=== PATIENT | female | born 1935 | race Caucasian/White ===

== ENCOUNTER 2022-08-16 10:47 | Emergency (ER) | payer MEDICARE, SELFPAY ==
[2022-08-16 11:23] VITALS: BP 133/57; PULSE 70; RESP 12; TEMP 36.4; O2SAT 100
--- NOTE | 2022-08-16 11:34 | ED.GENADULT ---
HPI - General Adult General Chief complaint: Unspecified Stated complaint: medication req Time Seen by Provider: 08/16/22 11:34 Source: patient Mode of arrival: ambulatory Limitations: altered mental status and physical limitation History of Present Illness HPI narrative: a 6-year-old female patient presents to the [facility] accompanied by her children with request for medication refill. Daughter states that patient was in a rehabilitation facility in for an day went and got brought her to [facility] last night. Daughter states that they did not give them another medication and that she is currently out of her glipizide and a tendon all. The daughter states that they do have to call to make an appointment with a new primary Doctor in [place]. Related Data Home Medications Medication Instructions Recorded Confirmed amlodipine 5 mg tablet 5 mg PO BID 08/16/22 08/16/22 atenolol 25 mg tablet 25 mg PO DAILY 08/16/22 08/16/22 atorvastatin 20 mg tablet 20 mg PO DAILY 08/16/22 08/16/22 divalproex 125 mg capsule,delayed 125 mg PO BID 08/16/22 08/16/22 release sprinkle dulaglutide 3 mg/0.5 mL 3 mg subcut WEEKLY 08/16/22 08/16/22 subcutaneous pen [facility]or ([facility]) gabapentin 100 mg capsule 100 mg PO DAILY 08/16/22 08/16/22 glipizide 5 mg tablet 5 mg PO DAILY 08/16/22 08/16/22 hydroxyzine pamoate 25 mg capsule 25 mg PO BID 08/16/22 08/16/22 insulin lispro 100 unit/mL 1 sliding scale dose subcut 08/16/22 08/16/22 subcutaneous pen (Admelog SoloStar USEASDIRECTD U-100 Insulin lispro) levothyroxine 75 mcg tablet 75 mcg PO DAILY 08/16/22 08/16/22 ondansetron 4 mg disintegrating 4 mg PO Q6H PRN Nausea 08/16/22 08/16/22 tablet potassium chloride 20 mEq oral 20 meq PO BID 08/16/22 08/16/22 packet sertraline 25 mg tablet 25 mg PO DAILY 08/16/22 08/16/22 Allergies Allergy/AdvReac Type Severity Reaction Status Date / Time egg AdvReac Gastrointestinal Verified 08/16/22 11:26 Upset Review of Systems Review of Systems: CONSTITUTIONAL: Denies fever, chills, or sweats. EYES: Denies visual changes, redness, or discharge. ENT: Denies rhinorrhea, congestion, sore throat, or otalgia. CARDIOVASCULAR: Denies chest pain, palpitations, or edema. RESPIRATORY: positive cough x3 weeks post COVID , denies dyspnea. GASTROINTESTINAL: Denies abdominal pain, nausea, vomiting, or diarrhea. GENITOURINARY: Denies dysuria or hematuria. SKIN: Denies rash or itching. MUSCULOSKELETAL: Denies back pain, joint pain, or myalgia. NEUROLOGIC: Denies headache, numbness, or weakness. PSYCHIATRIC: Denies anxiety or depression. [facility] Past Medical History Medical History (Updated 08/16/22 @ 11:52 by DARRYL Gallardo) Hypertension Type 2 diabetes mellitus Exam Narrative: GENERAL: Well-appearing, well-nourished, and in no acute distress. HEAD: Normocephalic, atraumatic. EYES: PERRLA and EOMI. ENT: Nares clear, no rhinorrhea or epistaxis. Mucous membranes moist. NECK: Supple. No lymphadenopathy CHEST: Clear to auscultation. No respiratory distress. HEART: Regular rate and rhythm. No murmur heard. Normal peripheral pulses. ABDOMEN: Soft, nontender, nondistended, normal active bowel sounds. EXTREMITIES: Normal range of motion. No edema. SKIN: Warm, dry, no rash. NEURO: No focal deficits. Alert and oriented x3. Course Course Level of Care: Express Care Visit Vital Signs Vital signs: Vital Signs Temperature 36.4 C 08/16/22 11:23 Pulse Rate 70 08/16/22 11:23 Respiratory Rate 12 08/16/22 11:23 Blood Pressure 133/57 L 08/16/22 11:23 Pulse Oximetry 100 08/16/22 11:23 Oxygen Delivery Room Air 08/16/22 11:23 Temperature 36.4 C 08/16/22 11:23 Pulse Rate 70 08/16/22 11:23 Respiratory Rate 12 08/16/22 11:23 Blood Pressure 133/57 L 08/16/22 11:23 Pulse Oximetry 100 08/16/22 11:23 Oxygen Delivery Room Air 08/16/22 11:23 vital signs reviewed. Medical Decision Making MDM Narrative
[2022-08-16 11:49] LABS: Glucose Point of Care 119 mg/dl (65-105)
== END 2022-08-16 12:00 | disposition home or self-care (01) ==
PROVIDERS: Emergency Provider Nurse Practitioner Family
DX: Z76.0 Encounter for issue of repeat prescription (principal); E11.9 Type 2 diabetes mellitus without complications; I10 Essential (primary) hypertension; Z79.84 Long term (current) use of oral hypoglycemic drugs; Z79.4 Long term (current) use of insulin
CPT/HCPCS: 82948; 99202; G0463

== ENCOUNTER 2022-10-26 10:57 | Outpatient (CLI) | payer MEDICARE, SELFPAY ==
--- NOTE | ~2022-10-26 | CT_ITS ---
CT scan of the Neck Technique: 2.5 mm axial scans were obtained through the neck without IV contrast administration. Ajay nal and sagittal reconstructions of the neck were obtained. Dose reduction technique was used on this scan by utilizing automated exposure control and iterative reconstruction technique. The dose-length product (DLP) was 513.06 mGy-cm. Clinical History: Localized swelling or mass Findings: There is no evidence of any significant cervical lymphadenopathy. Several small, nonenlarged jugulo- digastric and posterior cervical lymph nodes are noted bilaterally. Parapharyngeal spaces appear norm al bilaterally. The parotid and submandibular glands appear normal. The pharyngeal mucosal spaces appear normal. No soft tissue masses are seen in the neck. The thyroid gland appears normal. There is scarring at the left lung apex. Impression: No significant abnormalities noted. Reviewed, dictated and finalized at [facility]. Impression: No significant abnormalities noted.
== END 2022-10-26 10:58 | disposition home or self-care (01) ==
PROVIDERS: PCP Family Medicine; Visit Provider Family Medicine
DX: R22.1 Localized swelling, mass and lump, neck (principal)
CPT/HCPCS: 70490

== ENCOUNTER 2022-11-02 01:33 | Day surgery (SDC) | payer MEDICARE, SELFPAY ==
[2022-10-30 16:39] VITALS: BMI 23.8
[2022-11-02 10:37] VITALS: BP 183/57; PULSE 59; RESP 16; TEMP 36.6; O2SAT 100; BMI 24.2
[2022-11-02 10:38] LABS: Basophils Absolute Auto 0.1 K/mm3 (0.0-0.1); Basophils Percent Auto 0.6 % (0.2-1.2); Eosinophils Absolute Auto 0.2 K/mm3 (0-0.3); Eosinophils Percent Auto 3.1 % (0-4.4); Hematocrit 43.5 % (37.0-47.0); Hemoglobin 14.1 g/dL (12.0-15.0); Immature Granulocyte Absolute 0.01 K/mm3 (0.00-0.031); Immature Granulocyte Percent A 0.1 % (0-0.5); Lymphocytes Absolute Auto 2.59 K/mm3 (0.9-3.2); Lymphocytes Percent Auto 33.1 % (18.3-44.2); Mean Corpuscular HGB Conc 32.4 g/dl (32-36); Mean Corpuscular Hemoglobin 29.3 pg (26-34); Mean Corpuscular Volume 90.4 fl (80-100); Mean Platelet Volume 9.8 fl (7.4-10.4); Monocytes Absolute Auto 0.5 K/mm3 (0.1-0.6); Monocytes Percent Auto 6.8 % (2.6-8.5); Neutrophils Absolute Auto 4.4 K/mm3 (1.3-6.7); Neutrophils Percent Auto 56.3 % (45.5-73.1); Platelet Count Result 282 k/mm3 (150-375); Red Blood Count 4.81 M/mm3 (4.2-5.4); Red Cell Distribution Width 13.4 % (11.5-14.5); White Blood Count 7.8 K/mm3 (4.5-10.0)
[2022-11-02 10:49] LABS: Prothrombin Time 13.6 Seconds (11.1-14.7)
[2022-11-02 10:50] LABS: Anion Gap 6 mmol/L (8-16); Blood Urea Nitrogen 20 mg/dL (7-17); Calcium 9.4 mg/dL (8.4-10.2); Carbon Dioxide 30 mmol/L (22-30); Chloride 102 mmol/L (98-107); Estimated CRCL calculation 34 ml/min; Estimated Glomerular Filt Rate > 60; Glucose 131 mg/dL (65-110); Potassium 4.1 mmol/L (3.4-5.0); Sodium 138 mmol/L (137-145)
--- NOTE | 2022-11-02 13:05 | WPDMODSED ---
Moderate Sedation Note-Pt Data Patient Data Diagnosis: chronically implanted pacemaker at eol L Present Complaint: no complaints today Procedure to be performed/Plan: permanent pacemaker generator change Allergies Allergy/AdvReac Type Severity Reaction Status Date / Time egg AdvReac Gastrointestinal Verified 10/30/22 16:25 Upset Home Medications Medication Instructions Recorded Confirmed Type amlodipine 5 mg tablet 5 mg PO DAILY #100 tabs 09/15/22 10/30/22 Rx atenolol 25 mg tablet 25 mg PO DAILY #100 tabs 09/15/22 10/30/22 Rx atorvastatin 20 mg tablet 20 mg PO DAILY #100 tabs 09/15/22 10/30/22 Rx glipizide 5 mg tablet 5 mg PO DAILY #100 tabs 09/15/22 10/30/22 Rx levothyroxine 75 mcg tablet 75 mcg PO DAILY #100 tabs 09/15/22 10/30/22 Rx gabapentin 300 mg capsule 300 mg PO QHS #90 caps 09/22/22 10/30/22 Rx tramadol 50 mg tablet 50 mg PO Q6H PRN pain #60 tabs 10/08/22 10/30/22 Rx dulaglutide 3 mg/0.5 mL See Rx Instructions .Route 10/19/22 10/30/22 Rx subcutaneous pen injector .COMPLEX #2 mL (Trulicity) aspirin 81 mg tablet 81 mg PO DAILY 10/30/22 10/30/22 History Sedation/Anesthesia: No previous sedation/anesthesia problems (including family history). [facility] Past Medical History Medical History Alzheimer's dementia CAD (coronary artery disease) Epidermal cyst of neck Hyperlipidemia Hypertension Hypothyroidism (acquired) Type 2 diabetes mellitus Surgical History Surgical History Hx of CABG Social History Social History Social History: Single Smoking status: Never smoker Second hand tobacco smoke exposure: No Alcohol intake: never Substance use: never Substance use type: does not use Lack of Transportation: No Lack of Food: Never True Current Housing: I Have Housing Concerned About Future Housing: No Difficulty Paying Gas/Electric Bills: No Difficulty Paying for Meds: No Currently Unemployed: YES Education: Decline to Answer Difficulty w/ Childcare or Family Care: No Living arrangements: with family Occupation/Education: retired Gender identity (if verbalized by the patient): Female Sexual Orientation (if Verbalized by the Patient): Straight or Heterosexual Spiritual care concerns: No Mod Sed Physical Exam Physical Exam Pre Procedural Exam: Normal: Appearance ( elderly white female appearing her stated age), Neck, Throat, Airway, Lungs, Heart Size, Heart Rate, Heart Rhythm and Extremities Hours since solid foods: 12 Hours since liquid intake: 12 Mallampati Classification: class II Internal Medicine - PN: Obj Da Vital Signs Vital Signs: Vital Signs - 24 hr 11/02/22 10:37 Temperature 36.6 C Pulse Rate 59 L Respiratory Rate 16 Blood Pressure 183/57 H Pulse Oximetry 100 Oxygen Delivery Room Air Labs 11/02/22 10:33 11/02/22 10:33 Labs: Laboratory Results - last 24 hr 11/02/22 10:33 WBC 7.8 RBC 4.81 Hgb 14.1 Hct 43.5 MCV 90.4 MCH 29.3 MCHC 32.4 RDW 13.4 Plt Count 282 MPV 9.8 Immature Gran % (Auto) 0.1 Neut % (Auto) 56.3 Lymph % (Auto) 33.1 [place] % (Auto) 6.8 Eos % (Auto) 3.1 Baso % (Auto) 0.6 Lymph # (Auto) 2.59 [place] # (Auto) 0.5 Eos # (Auto) 0.2 Baso # (Auto) 0.1 Abs Immat Gran (auto) 0.01 Absolute Neuts (auto) 4.4 Absolute Nucleated RBC 0.0 Nucleated RBC % 0.0 PT 13.6 INR 1.0 Sodium 138 Potassium 4.1 Chloride 102 Carbon Dioxide 30 Anion Gap 6 L BUN 20 H Creatinine 0.80 Estim Creat Clear Calc 34 Estimated GFR > 60 Glucose 131 H Calcium 9.4 ASA Classification/Sedation ASA Classification/Sedation ASA Class: II Emergent: No Risks: Risks, benefits and alternatives explained and patient/family accepted plan for sedation. Patient re-evaluated immediately prior to sedation.
--- NOTE | 2022-11-02 14:05 | P.PCNCC_ITS ---
Cardiac Cath Procedure Note Date of procedure:: 11/02/22 Performing physician:: Elkin Tran MD Indication:: permanent pacemaker at eol Brief clinical history:: this is an 86-year-old woman who received a pacemaker implant in 2007 in [place] for indications that I have we do not have available to us. She has moved to this area her pacemaker has been at eol since 2017. The patient wishes to have a generator change and is admitted electively for that purpose Procedure Procedure performed:: explantation of depleted pacemaker pulse generator implantation of new dual-chamber [employer] pacemaker generator using existing leads Sedation/Medication given:: fentanyl 25 mg Versed 2 mg case start time 1:24 p.m. case end time 2:00 p.m. sedation provided by Kayley Rosas RN, trained observer Access site:: chronically implanted device pocket in left subclavian fossa Estimated blood loss:: 20 cc Procedure note:: patient was brought to the cardiac catheterization lab in the postabsorptive state where the left anterior chest wall above the chronically implanted pacemaker pocket was prepped draped in sterile fashion. She received 20 cc of 1% lidocaine infiltrated above the pocket. Following this the PlasmaBlade was used to make an incision in the skin above the pocket and was used to provide electrocautery as well. The pocket was dissected down to the fibrous capsule this was then opened using the plasma blade and the Metzenbaum scissors. Following this the device was removed from the pocket along with the attached leads and was visually unremarkable in appearance. The leads were disconnected from the depleted generator using the torque wrench and the leads were then connected to the new generator. The pocket was irrigated with antibiotic infused saline. The fibrous capsule around the chronically implanted generator was heavily calcified and some of this was dissected away and removed. Following this the new generator and the leads were implanted back into the pocket which was then closed in layers using 3-0 Vicryl in interrupted fashion for the subcutaneous tissue and 4-0 Vicryl in a running subcuticular fashion for the skin. The wound was then dressed with an Aquacel dressing. She was taken back to the holding area in stable condition. Postop antibiotics were ordered. Findings:: The depleted removed pulse generator was a Guidant [id number] serial 3. 73712 dual-chamber generator originally implanted October 24 2007. the new pacemaker pulse generator is a [employer] dual-chamber pacemaker model L111:ESSENTIO MRI DR IS-1. serial number [id number]. device is programmed in the DDD mode lower rate limit 60 upper rate limit 130 av delay 220 6-300 millisecond. The chronically implanted atrial lead is a Guidant model 4086 : FLEXTEND IS-1 Bi Positive Fix RA/RV 45cm . P waves are sensed at 2.2 mV threshold 0.8 volt At 0.4 millisecond impedance 456 Ohms. The chronically implanted ventricular lead is a Guidant model 4087 FLEXTEND IS-1 Bi Positive Fix RA/RV 52 cm. R-waves are sensed at 16.0 mV threshold 0.8 volt at 0.4 millisecond impedance 577 Ohms. both leads were chronically implanted October 24, 2007 Conclusion:: 1. successful uncomplicated explantation of depleted dual-chamber pulse generator at [facility] since 2016 2. successful implantation of new dual-chamber pulse generator as detailed above using chronic existing atrial and ventricular leads which are functioning well. Elkin Tran MD FACC
[2022-11-02 14:15] VITALS: BP 161/58; PULSE 60; RESP 16; O2SAT 99
[2022-11-02 14:30] VITALS: BP 154/61; PULSE 60; RESP 13; O2SAT 99
[2022-11-02 14:45] VITALS: BP 160/63; PULSE 60; RESP 16; O2SAT 98
[2022-11-02 15:00] VITALS: BP 157/69; PULSE 60; RESP 15; O2SAT 99
[2022-11-02 15:15] VITALS: BP 168/55; PULSE 64; RESP 16; O2SAT 100
== END 2022-11-02 15:35 | disposition home or self-care (01) ==
PROVIDERS: PCP Family Medicine; Visit Provider Specialist
PROC: 0JPT0PZ Removal of Cardiac Rhythm Related Device from Trunk Subcutaneous Tissue and Fascia, Open Approach (ICD-10-PCS; CPT 33228; principal; 2022-11-02 11:30)
DX: Z45.010 Encounter for checking and testing of cardiac pacemaker pulse generator [battery] (principal); G30.9 Alzheimer's disease, unspecified; F02.80 Dementia in other diseases classified elsewhere, unspecified severity, without behavioral disturbance, psychotic disturbance, mood disturbance, and anxiety; I10 Essential (primary) hypertension; E78.5 Hyperlipidemia, unspecified; E03.9 Hypothyroidism, unspecified; I25.10 Atherosclerotic heart disease of native coronary artery without angina pectoris; Z95.1 Presence of aortocoronary bypass graft; Z79.84 Long term (current) use of oral hypoglycemic drugs; Z79.899 Other long term (current) drug therapy
CPT/HCPCS: 33228; 36415; 80048; 85025; 85610; C1785; J0690; J2250; J3010; J7030; J7040

== ENCOUNTER 2022-11-12 08:20 | Outpatient (CLI) | payer MEDICARE, SELFPAY ==
--- NOTE | 2022-11-12 08:50 | ECHO_ITS ---
Patient Info Name: Roxanna Cuellar Age: 86 years : 1935 Gender: Female Ht: 62 in Wt: 130 lbs BSA: 1.62 m2 HR: 60 bpm BP: 149 / 71 mmHg Heart Rhythm: Sinus Rhythm Technical Quality: Fair Exam Date: 11/12/2022 9:01 AM Exam Location: [facility] Patient Status: Outpatient Admit Date: 11/12/2022 Staff Ordering Physician: Farhad Glover DO Fire Sprinkler Inspector: Gonzalo Silverio RDCS Attending Provider: Farhad Glover DO Referring Physician: Adalberto GIBSON; Exam Type: CA echo dop color flow w con Study Info Indications - CAD Complete two-dimensional, color flow and Doppler transthoracic echocardiogram is performed with contrast to opacify the left ventricle and to improve the deliniation of the left ventricle endocardial borders. Summary 1. Definity contrast administered improved wall motion interpretation. 2. Left ventricular chamber dimension is normal. 3. Left ventricular systolic function is normal, estimated at 65-70%. 4. There is mild concentric increased left ventricular wall thickness. 5. The left ventricular diastolic function is abnormal. 6. E/e' 21 is elevated. 7. Linear artifact in right ventricle suggestive of catheter(s), pacemaker lead(s), or ICD lead(s). 8. Left atrial chamber dimension is mildly enlarged. 9. Linear artifact in the right atrium suggestive of catheter(s), pacemaker lead(s), or ICD lead(s). 10. There is moderate aortic valve sclerosis. 11. There is mild aortic valve stenosis with a peak velocity of 245.88 cm/s, mean gradient of 11 mmHg, and aortic valve area of 1.05 cm2. 12. There is trace aortic valve regurgitation. 13. The mitral valve has severely calcified leaflets and severely calcified annulus. 14. There is mild to moderate tricuspid valve regurgitation. 15. No pulmonary hypertension, estimated pulmonary arterial systolic pressure is 33 mmHg. 16. There is trace pulmonic regurgitation. Left Ventricle E/e' 21 is elevated. Definity contrast administered improved wall motion interpretation. Left ventricular chamber dimension is normal. Left ventricular systolic function is normal, estimated at 65-70%. There is mild concentric increased left ventricular wall thickness. The left ventricular diastolic function is abnormal. Right Ventricle Linear artifact in right ventricle suggestive of catheter(s), pacemaker lead(s), or ICD lead(s). Right ventricular chamber dimension is normal. Right ventricular systolic function is normal. Left Atria Left atrial chamber dimension is mildly enlarged. Right Atria Linear artifact in the right atrium suggestive of catheter(s), pacemaker lead(s), or ICD lead(s). Right atrial chamber dimension is normal. Aortic Valve The aortic valve is trileaflet. There is moderate aortic valve sclerosis. There is mild aortic valve stenosis with a peak velocity of 245.88 cm/s, mean gradient of 11 mmHg, and aortic valve area of 1.05 cm2. There is trace aortic valve regurgitation. Pulmonic Valve There is trace pulmonic regurgitation. Mitral Valve The mitral valve has severely calcified leaflets and severely calcified annulus. There is no mitral valve stenosis. There is no mitral valve regurgitation. Tricuspid Valve There is mild to moderate tricuspid valve regurgitation. No pulmonary hypertension, estimated pulmonary arterial systolic pressure is 33 mmHg. Pericardium/Pleural There is no pericardial effusion. Inferior Vena Cava Normal inferior vena cava with >50% collapse upon inspiration consistent with normal right atrial pressure, 5 mmHg. Aorta The aortic root size at the sinus of Valsalva
[2022-11-12] MEDS: PERFLUTREN LIPID MICROSPHERES 1.5 ML VIAL DILUTED TO 10 ML TOTAL VOLUME (10:10)
== END 2022-11-12 08:21 | disposition home or self-care (01) ==
PROVIDERS: PCP Family Medicine; Visit Provider Internal Medicine Cardiovascular Disease
DX: I25.810 Atherosclerosis of coronary artery bypass graft(s) without angina pectoris (principal)
CPT/HCPCS: C8929; Q9957

== ENCOUNTER 2022-12-16 00:43 | Day surgery (SDC) | payer MEDICARE, SELFPAY ==
--- NOTE | 2022-12-09 13:51 | PC.NURSE ---
Report to the Outpatient Waiting Room, entrance under the green pavilion located off [facility], at time _0600 on date __12/16/22 . Planned Procedure Time: __729 . Time changes happen often and if your time is changed the preop area will call you the afternoon before. - You and your visitor will be asked to self-screen and do not enter if you have any COVID symptoms. - A mask is optional within the hospital at this time. Patients may have clear liquids (water, carbonated beverages, clear teas, apple juice) until 3 hours prior to surgery with a maximum of 20 ounces. - No food from midnight until time of surgery - Infants may have breast milk until 4 hours before surgery, infant formula 6 hours prior to surgery. - Children will be allowed to drink immediately following surgery. If applicable, please bring a bottle or sippy cup to assist with drinking. Juice, water, soda, and popsicles are readily available. For infants on formula, please bring formula the day of surgery. Pacifiers are allowed. Take the following medications with a SIP of water the morning of surgery: ___AMLODIPINE,ATENOLOL,LEVOTHYROXINE DO NOT STOP ANY OF YOUR OTHER PRESCRIPTION MEDICATIONS PRIOR TO SURGERY ?EXCEPT THE FOLLOWING Medications to discontinue per physician ____NONE Please no make-up, nail sinhala, hairspray, perfume, deodorant, or body powder the day of surgery. No jewelry (including any body piercings) or valuables the day of surgery, leave them at home. Please take a shower or bath the night before, or the morning of, surgery with an antibacterial soap. Wear comfortable, loose fitting clothing. Children are encouraged to wear pajamas. - Jewelry must be removed prior to entering the operating room. Rings and piercings that are not removed may be cut off. - The hospital will not accept responsibility for valuables. - Please leave all valuables, including medications, at home the day of surgery. If you are going home after surgery, a licensed drivers' cash clerk must drive you home. - NO public transportation without another adult if you receive anesthesia. - We recommend that an adult stay with you for 24 hours following discharge. - We also recommend that you do not drive, make important decision, drink alcoholic beverages, or take any drugs that were not prescribed by your health care provider for at least 24 hours after your discharge time. Follow any additional instructions given to you from your surgeon. If you or anyone in your household have experienced Covid symptoms in the past week, please notify your surgeon or the nurse liaison at the phone number below for possible testing. Telephone instructions given to _PT'S DAUGHTER IN LAW CHER DOLAN and asked if any additional questions and then verbalized understanding. Patient advised to call surgeon office or pre surgery nurse liaison [phone] if any additional questions.
[2022-12-09 14:01] VITALS: BMI 24.5
[2022-12-16] VITALS (9 sets, daily range): BP systolic 117–149; BP diastolic 39–51; PULSE 60–61; RESP 12–17; TEMP 36.1–36.3; O2SAT 98–100
[2022-12-16] MEDS: LACTATED RINGERS 1,000 ML 30 ML IV CONT ×2 (06:30→10:23)
--- NOTE | 2022-12-16 06:43 | WPDANESEPPF ---
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 Patient Data Age: 87 Gender: F Height: 1.55 m Weight: 58.99 kg Allergies Allergy/AdvReac Type Severity Reaction Status Date / Time egg AdvReac Gastrointestinal Verified 12/09/22 13:35 Upset Home Medications Medication Instructions Recorded Confirmed Type amlodipine 5 mg tablet 5 mg PO DAILY #100 tabs 09/15/22 12/09/22 Rx atenolol 25 mg tablet 25 mg PO DAILY #100 tabs 09/15/22 12/09/22 Rx atorvastatin 20 mg tablet 20 mg PO DAILY #100 tabs 09/15/22 12/09/22 Rx glipizide 5 mg tablet 5 mg PO DAILY #100 tabs 09/15/22 12/09/22 Rx levothyroxine 75 mcg tablet 75 mcg PO DAILY #100 tabs 09/15/22 12/09/22 Rx gabapentin 300 mg capsule 300 mg PO QHS #90 caps 09/22/22 12/09/22 Rx aspirin 81 mg tablet 81 mg PO DAILY 10/30/22 12/09/22 History tramadol 50 mg tablet 50 mg PO Q6H PRN pain #60 tabs 11/06/22 12/09/22 Rx dulaglutide 3 mg/0.5 mL See Rx Instructions .Route 12/08/22 12/09/22 Rx subcutaneous pen injector .COMPLEX #2 mL (Trulicity) acetaminophen 650 mg 650 mg PO Q12H PRN Pain 12/09/22 12/09/22 History tablet,extended release (Tylenol 8 Hour) Patient hx anesthesia problems: none Family hx anesthesia problems: none Results Review: All pre-operative results and documents have been reviewed as part of the pre-operative evaluation. [facility] Past Medical History Medical History Alzheimer's dementia CAD (coronary artery disease) Epidermal cyst of neck Hyperlipidemia Hypertension Hypothyroidism (acquired) Type 2 diabetes mellitus Surgical History Surgical History Hx of CABG Social History Social History Social History: Single Smoking status: Never smoker Second hand tobacco smoke exposure: No Alcohol intake: never Substance use: never Substance use type: does not use Lack of Transportation: No Lack of Food: Never True Current Housing: I Have Housing Concerned About Future Housing: No Difficulty Paying Gas/Electric Bills: No Difficulty Paying for Meds: No Currently Unemployed: YES Education: Decline to Answer Difficulty w/ Childcare or Family Care: No Living arrangements: with family Occupation/Education: retired Gender identity (if verbalized by the patient): Female Sexual Orientation (if Verbalized by the Patient): Straight or Heterosexual Spiritual care concerns: No Anes - Eval Final PreProcedure Day of Procedure 12/16/22 06:43 Patient weight: normal Heart: regular rate and rhythm Lungs: decreased breath sounds Airway: Mallampati scale class III Neurological: alert and oriented Last oral intake: >/= 8 hours ASA classification: IV Emergent: no Anesthetic plan: proceed Anesthesia type and monitoring: general LMA and standard monitoring Results Review: All pre-operative results and documents have been reviewed as part of the pre-operative evaluation. Informed Consent: The patient's anesthetic plan and its attendant risks and benefits were discussed with the patient/family/POA. Questions were solicited and answers provided to the satisfaction of the patient/family/POA.
[2022-12-16 07:06] LABS: Glucose Point of Care 126 mg/dl (65-105)
--- NOTE | 2022-12-16 07:15 | WPDHPUPDATE1 ---
History and Physical Update Update Date/Time: 12/16/22 07:15 History and Physical has been reviewed, including an updated exam of the patient. There are NO changes in the patient's condition. Risks, benefits, and alternatives have been discussed and questions answered. Patient agrees to proceed with procedure.
[2022-12-16] MEDS: ceFAZolin 2 GM/D5W 50 ML 2 GM/50 ML BAG IVPB (07:25)
[2022-12-16] MEDS: LIDO 1%/EPINEPHRINE 1:100,000 20 ML VIAL 10 ML INFILTRATE (08:20)
[2022-12-16] MEDS: LIDO 1%/EPINEPHRINE/PF 1:200,000 30 ML VIAL 27 ML XX (10:03)
[2022-12-16 10:57] LABS: Glucose Point of Care 154 mg/dl (65-105)
--- NOTE | 2022-12-16 12:28 | W.PM.PROC2 ---
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 He had the consent of the patient and family. The patient was taken to the operating room she was placed onto the operating table and then rotated to the prone position with all points supported pressure points padded and strapping applied The hair was shaved on the back of the head as needed. Her face was resting and the facial support allowing the NG to pass through. The posterior head and neck were prepped and draped in usual fashion. The site was locally infiltrated with 1% lidocaine with epinephrine. A 6 cm excision was carried out with a 15 blade through the skin. Little bleeding was encountered. The skin was taken off the fascia.. Of a small specimen of skin was sent to pathology for frozen section at the start of the case to determine the nature of this round domed mass. Squamous cell carcinoma was reported. It appeared that an occipital cutaneous nerve was identified on the left side and that was preserved. The specimen was marked at the superior aspect for 12:00 p.m. and sent to pathology pathologist revealed all margins were free. Full-thickness skin graft was harvested from the left lateral thigh. This was measured and locally infiltrated and the full-thickness specimen taken. The wound was closed with intradermal 3-0 Vicryl suture after undermining and advancing the skin edges. Glue was eventually applied to close the skin. The graft was defatted and inset with running 4-0 nylon and multiple quilting stitches with 4-0 nylon. The tie-over dressing was applied distal hole gauze in place. Patient was transported to the recovery room in stable condition. She was given 2 g Ancef at the start of the case. She is being discharged home with a prescription for cephalexin 500 mg t.i.d. for 5 days and she has a prescription for hydrocodone 5/325 6 Estimated Blood Loss 15 Drains No Packing No Pathology Yes Complications No immediate complications Condition Stable Disposition PACU
== END 2022-12-16 13:00 | disposition home or self-care (01) ==
PROVIDERS: PCP Family Medicine; Visit Provider Plastic Surgery
PROC: (CPT 11626; principal; 2022-12-16 07:30)
DX: C44.49 Other specified malignant neoplasm of skin of scalp and neck (principal); I25.10 Atherosclerotic heart disease of native coronary artery without angina pectoris; G30.9 Alzheimer's disease, unspecified; F02.80 Dementia in other diseases classified elsewhere, unspecified severity, without behavioral disturbance, psychotic disturbance, mood disturbance, and anxiety; I10 Essential (primary) hypertension; E78.5 Hyperlipidemia, unspecified; E03.9 Hypothyroidism, unspecified; E11.9 Type 2 diabetes mellitus without complications; Z95.1 Presence of aortocoronary bypass graft; Z79.84 Long term (current) use of oral hypoglycemic drugs; Z79.82 Long term (current) use of aspirin; Z79.899 Other long term (current) drug therapy
CPT/HCPCS: 11626; 15220; 15221; 82948; 88305; 88331; 88332; A9270; J0330; J0690; J1100; J2371; J2405; J2704; J3010; J7120

== ENCOUNTER → 2023-07-09 12:14 | Outpatient (CLI) | payer MEDICARE, SELFPAY ==
--- NOTE | ~2023-07-09 | XR_ITS ---
AP view of the pelvis and AP and lateral views of the right hip Clinical history: Pain Findings: No acute fracture or dislocation is seen. Osseous alignment is anatomic. Bilateral hip and SI joint spaces are preserved. Soft tissues are unremarkable. Impression: No significant abnormality is seen. Reviewed, dictated and finalized at [facility]. [employer] Impression: No significant abnormality is seen.
== END ==
PROVIDERS: PCP Nurse Practitioner Family; Visit Provider Nurse Practitioner Family
DX: M25.551 Pain in right hip (principal)
CPT/HCPCS: 73502